=== PATIENT | female | born 2000 | race African-American/Black ===

== ENCOUNTER → 2019-10-17 | Outpatient (CLI) | payer BC | LOC: COL.RAD 06:48 | DX: R10.11 Right upper quadrant pain (principal) | CPT/HCPCS: A9537; J2805 ==

== ENCOUNTER → 2022-02-25 | Outpatient (CLI) | payer BC ==
[~2022-02-25] MED LIST: BENADRYL25 M2 PO; BLISOVI FE 1-21 EACH PO; CLARITIN 1010 MG/TAB PO; EFFEXOR 75M75 MG/TAB PO; INDERAL 10MG10 MG PO; VITAMIN D PO; VITAMIN D3400 I1 PO
== END ==
LOC: COL.RAD 06:45
DX: H47.10 Unspecified papilledema (principal); G43.009 Migraine without aura, not intractable, without status migrainosus

== ENCOUNTER 2022-02-27 06:53 | Outpatient (CLI) | payer BC ==
[~2022-02-27] VITALS: Ht 157.5 cm; Wt 103.6 kg
[~2022-02-27 06:53] MED LIST changes: -VITAMIN D3400 I1 PO
[2022-02-27] MEDS ORDERED: VITAMIN D3400 I1 PO (07:16)
[2022-02-27 07:17] VITALS: BP 131/60; PULSE 92; TEMP 98.3
[2022-02-27 08:30] VITALS: BP 116/72; PULSE 82
[2022-02-27 08:35] VITALS: BP 122/72; PULSE 78
[2022-02-27 08:45] VITALS: BP 122/69; PULSE 99
[2022-02-27 09:00] VITALS: BP 122/74; PULSE 81
[2022-02-27 09:19] LABS: CSF APPEARANCE CLEAR; CSF COLOR COLORLESS; CSF RBC 886 /mm3 (0-0)
[2022-02-27 09:30] VITALS: BP 118/72; PULSE 74
[2022-02-27 09:37] LABS: GLUCOSE,CSF 62 mg/dL (40-70); TOTAL PROTEIN,CSF 28 mg/dL (15-45)
[2022-02-27 10:01] LABS: CSF POLYMORPHONUCLEAR 64 % (0-6)
[2022-02-27 10:02] LABS: CSF MONONUCLEAR 36 % (70-100)
--- NOTE | 2022-02-27 10:02 | NUR ---
Patient did well post lumbar puncture, vital signs stable, after 1 hour of flat time, she was able to get up and ambulate to the restoom, tolerating PO intake, denies pain or headache, mother present in the room, I discussed discharge instructions with them, encouraged to stay well hydrated and use Tylenol for any headache or discomfort, isntructed to follow up with PCP/ordering physician for lab results r/t procedure, she is ambulatory and I escorted them out the door
== END 2022-02-27 10:05 | disposition home or self-care (01) ==
LOC: COL.RAD 06:53
PROVIDERS: Nurse Practitioner
DX: H47.10 Unspecified papilledema (principal); G43.009 Migraine without aura, not intractable, without status migrainosus